=== PATIENT | male | born 2000 | race Caucasian/White ===

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

== ENCOUNTER 2020-01-18 17:29 | Emergency (ER) | payer SELFPAY ==
[2020-01-18 17:42] VITALS: BP 119/72; PULSE 118; RESP 16; TEMP 36; O2SAT 97; BMI 27.3
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
[2020-01-18 17:51] VITALS: BP 131/63; PULSE 117; RESP 20; O2SAT 98
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
[2020-01-18] MEDS: ketorolac 60 mg/2 mL INJ IM (18:29)
[2020-01-18 19:10] VITALS: BP 127/65; PULSE 84; RESP 20; O2SAT 99
--- NOTE | 2020-01-20 11:16 | DCPLANNER ---
manager solution had message to schedule a follow up appointment for patient with ortho. manager solution called the ortho clinic, spoke with Pat, gave clinic patients information. manager solution was told that patients information would be printed and reviewed. Clinic will call patient with appointment information.
--- NOTE | 2020-01-22 15:00 | DCPLANNER ---
Lorena from [facility] called insurance case manager and stated that a follow up appointment is scheduled for Monday, January 23 at 8:[address] Varma. Lorena also informed insurance case manager that she spoke with patients mother and gave the patients mother of the appointment information. Patients mother stated that she would try and contact patient with appointment information. Clinic is waiting for patient to call and confirm appointment time.
--- NOTE | 2020-02-04 15:26 | DCPLANNER ---
Patient had a follow up appointment scheduled for 01.24.20 with ortho - patient did not attend appointment.
== END 2020-01-18 19:12 | disposition home or self-care (01) ==
PROVIDERS: Emergency Provider Physician Assistant; PCP Family Medicine
DX: S43.102A Unspecified dislocation of left acromioclavicular joint, initial encounter (principal); F17.210 Nicotine dependence, cigarettes, uncomplicated; V29.9XXA Motorcycle rider (driver) (passenger) injured in unspecified traffic accident, initial encounter
CPT/HCPCS: 12345; 29240; 73030; 73630; 96372; 99282; 99283; J1885